=== PATIENT | female | born 1985 | race Caucasian/White ===

== ENCOUNTER 2020-09-26 13:53 | Day surgery (SDC) | payer OTHER ==
[~2020-09-26] VITALS: Ht 170 cm; Wt 181.6 kg
[2020-09-26] VITALS (8 sets, daily range): BP systolic 116–147; BP diastolic 51–93
[2020-09-26] MEDS ORDERED: morphine INJ 10 MG/ML 1ML (SYR OR VIAL) IVP STA ×4 (14:19→16:08)
[2020-09-26 14:20] LABS: HEMATOCRIT 41 % (35-52); HEMOGLOBIN 12.2 g/dL (11.5-16.0); MEAN CORPUSCULAR HEMOGLOBIN 26 pg (25-34); MEAN CORPUSCULAR HGB CONC 30 g/dL (32-36); MEAN CORPUSCULAR VOLUME 86 fL (80-99); MEAN PLATELET VOLUME 10.3 fL (9.0-12.2); PLATELET COUNT 288 10^3/uL (130-400); WHITE BLOOD COUNT 13.4 10^3/uL (4.3-11.0)
[2020-09-26] MEDS ORDERED: morphine INJ 10 MG/ML 1ML (SYR OR VIAL) ONE (14:22)
[2020-09-26 14:28] LABS: ALBUMIN 3.6 GM/DL (3.2-4.5); CHLORIDE 106 MMOL/L (98-107); SODIUM 139 MMOL/L (135-145)
[2020-09-26] MEDS ORDERED: TETANUS,DIPTH,PERTUSS P/F (BOOSTRIX) 0.5 ML VIAL IM ONE (14:30)
[2020-09-26] MEDS ORDERED: TRANEXAMIC ACID INJECTION 1,000 MG in NS (IVPB) 250 ML IV SCH (14:30)
[2020-09-26 14:31] LABS: GLUCOSE 116 MG/DL (70-105); TOTAL PROTEIN 7.4 GM/DL (6.4-8.2)
[2020-09-26 14:32] LABS: BILIRUBIN,TOTAL 0.5 MG/DL (0.1-1.0); CARBON DIOXIDE 24 MMOL/L (21-32)
[2020-09-26 14:33] LABS: FIBRIN DEGRADATION PRODUCTS 2.95 UG/ML (0.00-0.49); INR 1.1 (0.8-1.4); PROTHROMBIN TIME PATIENT 14.1 SEC (12.2-14.7)
[2020-09-26 14:34] LABS: ALKALINE PHOSPHATASE 83 U/L (40-136); CREATININE SERUM 0.84 MG/DL (0.60-1.30); GFR ESTIMATED > 60
[2020-09-26 14:35] LABS: BUN/CREATININE RATIO 15
[2020-09-26 14:36] LABS: BILIRUBIN,DIRECT 0.3 MG/DL (0.0-0.3); BILIRUBIN,INDIRECT 0.2 MG/DL
[2020-09-26 14:37] LABS: ALANINE AMINOTRANSFERASE 59 U/L (0-55); MAGNESIUM 1.9 MG/DL (1.6-2.4)
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
[2020-09-26] MEDS ORDERED: LIDOCAINE PF 2% 5 ML (XYLOCAINE) VIAL ONE (15:25)
[2020-09-26] MEDS ORDERED: fentaNYL INJ 100 MCG/2 ML AMP ONE (15:25)
[2020-09-26] MEDS ORDERED: proPOfol 200 MG/20 ML (DIPRIVAN) VIAL IV ONE (15:25)
[2020-09-26] MEDS ORDERED: MIDAZOLAM 2 MG/2 ML (VERSED) VIAL ONE (15:25)
[2020-09-26 15:42] LABS: AMPHETAMINE SCREEN, URINE NEGATIVE (NEGATIVE); BARBITURATE SCREEN URINE NEGATIVE (NEGATIVE); BENZODIAZEPINES SCREEN URINE NEGATIVE (NEGATIVE); CANNABINOID SCREEN, URINE NEGATIVE (NEGATIVE); COCAINE SCREEN URINE NEGATIVE (NEGATIVE); METHADONE STAT NEGATIVE (NEGATIVE); METHAMPHETAMINE SCREEN URINE S NEGATIVE (NEGATIVE); OPIATE SCREEN URINE POSITIVE (NEGATIVE); OXYCODONE STAT NEGATIVE (NEGATIVE); PROPOXYPHENE STAT NEGATIVE (NEGATIVE); TRICYCLIC ANTIDEPRESSANTS SCRE NEGATIVE (NEGATIVE)
[2020-09-26] MEDS ORDERED: LACTATED RINGERS 1,000 ML IV PRN (15:45)
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
[2020-09-26] MEDS ORDERED: NS 100 ML (IVPB) BAG IV ONE (16:15)
[2020-09-26] MEDS ORDERED: HOLD METFORMIN - RECEIVED CONTRAST 20 ML VIAL IV SCH (16:15)
[2020-09-26] MEDS ORDERED: IOHEXOL 350 MG/ML 100 ML (OMNIPAQUE 350) VIAL IV ONE (16:15)
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
--- NOTE | 2020-09-26 16:55 | Diagnostic Imaging Report ---
PROCEDURE: CT thoracic and lumbar spine without contrast. TECHNIQUE: Multiple contiguous axial images were obtained through the thoracic and lumbar spine without the use of intravenous contrast. Sagittal and coronal reformations were then performed. All CT scans use one or more of the following dose optimizing techniques: automated exposure control, MA and/or KvP adjustment based on patient size and exam type or iterative reconstruction. INDICATION: Back pain. COMPARISON: CT chest, abdomen and pelvis performed concurrently. FINDINGS: Thoracic spine: No acute fracture within the lumbar spine. There has been acute nondisplaced fracture of the left 12th rib at its medial aspect. Alignment of the thoracic spine is normal. No spinal stenosis. Visualized portions of the lungs are clear outside of some atelectasis. Lumbar spine: There are acute simple fractures involving the left first and second transverse processes. No other acute fracture within the lumbar spine. No high-grade spinal stenosis. Mild degenerative disc bulging at L4-L5. No sacral fracture. No concerning abnormality in the retroperitoneum. IMPRESSION: 1. Acute mildly displaced fractures of the left posterior 12th rib and left L1 and L2 transverse processes. 2. No fracture of the thoracic or lumbar vertebrae. Dictated by: Dictated on workstation # [id number]
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
[2020-09-26] MEDS ORDERED: ceFAZolin INJECTION 2,000 MG ONE (18:03)
[2020-09-26] MEDS ORDERED: SEVOFLURANE (ULTANE) 15 ML INHAL SOLN ONE (18:32)
[2020-09-26] MEDS ORDERED: DESFLURANE (SUPRANE) 15 ML INHAL SOLN ONE (18:32)
--- NOTE | 2020-09-26 18:34 | Progress Note-Post Operative ---
Post-Operative Progess Note Surgeon (s)/Watch Commander (s) Surgeon ARA ESPINAL DO Watch Commander: SEBASTIAN Henao Pre-Operative Diagnosis Left leg laceration Post-Operative Diagnosis same plus avulsion of bone Procedure & Operative Findings Date of Procedure 09/26/20 Procedure Performed/Findings Washout and closure of left leg laceration, measuring 21 cm long with 23 sutures Anesthesia Type GET Estimated Blood Loss Estimated blood loss (mL): less than 40 ml Specimens/Packing Specimens Removed loose bony fragment ARA ESPINAL DO Sep 26, 2020 18:34
[2020-09-26] MEDS ORDERED: ONDANSETRON 4 MG/2 ML (SDV) Z0FRAN ONE (18:39)
[2020-09-26] MEDS ORDERED: SUCCINYLCHOLINE INJ 100 MG/5 ML SYR/VIAL ONE (18:40)
[2020-09-26] MEDS ORDERED: ROCURONIUM 10 MG/ML 5 ML SYRINGE IV ONE (18:40)
[2020-09-26] MEDS: LACTATED RINGERS 1,000 ML IV SCH (18:41)
[2020-09-26] MEDS ORDERED: morphine INJ 10 MG/ML 1ML (SYR OR VIAL) IVP PRN (18:45)
[2020-09-26] MEDS ORDERED: ONDANSETRON 4 MG/2 ML (SDV) Z0FRAN IVP PRN (18:45)
--- NOTE | 2020-09-26 19:41 | Diagnostic Imaging Report ---
CLINICAL HISTORY: Postreduction. COMPARISON: Right wrist radiograph performed earlier the same day. TECHNIQUE: 2 views of the right wrist. FINDINGS: There is improved alignment of the fracture involving the distal right radius. Splint has been placed overlying the right wrist. IMPRESSION: Improved alignment of the fracture involving the distal right radius status post reduction. Dictated by: Dictated on workstation # [id number]
--- NOTE | 2020-09-26 19:42 | Anesthesia-General Post-Op ---
General Patient Condition Mental Status/LOC: Same as Preop Cardiovascular: Satisfactory Nausea/Vomiting: Absent Respiratory: Satisfactory Pain: Controlled Complications: Absent Post Op Complications Complications None Follow Up Care/Instructions Patient Instructions None needed. Anesthesia/Patient Condition Patient Condition Patient is doing well, no complaints, stable vital signs, no apparent adverse anesthesia problems. No complications reported per nursing. CHRISTIANO BUTLER CRNA Sep 26, 2020 19:42
[2020-09-26] MEDS ORDERED: ENOXAPARIN 40 MG/0.4 ML (LOVENOX) SYR SC SCH (20:30)
[2020-09-26] MEDS: morphine INJ 4 MG/ML 1 ML (VIAL/SYRINGE) IV PRN (22:02)
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
[2020-09-26] MEDS ORDERED: ALBU2.5V4 (23:13)
[2020-09-26] MEDS ORDERED: MONT10TA32 (23:13)
[2020-09-26] MEDS ORDERED: RT-ALBUINH (23:13)
[2020-09-27] MEDS: morphine INJ 4 MG/ML 1 ML (VIAL/SYRINGE) IV PRN ×7 (00:35→15:28)
[2020-09-27] MEDS: ceFAZolin 2 GM IV Premixed 50 ML IV SCH ×2 (00:46→07:45)
[2020-09-27] MEDS: LACTATED RINGERS 1,000 ML IV SCH ×2 (03:00→11:15)
[2020-09-27 03:54] VITALS: BP 117/73
[2020-09-27 08:31] VITALS: BP 130/60
[2020-09-27] MEDS ORDERED: PANTOPRAZOLE 40 MG (PROTONIX) VIAL IVP SCH (09:00)
[2020-09-27] MEDS ORDERED: IOHEXOL 350 MG/ML 100 ML (OMNIPAQUE 350) VIAL IV ONE (09:30)
[2020-09-27] MEDS ORDERED: NS 100 ML (IVPB) BAG IV ONE (09:30)
[2020-09-27] MEDS ORDERED: HOLD METFORMIN - RECEIVED CONTRAST 20 ML VIAL IV SCH (09:30)
--- NOTE | 2020-09-27 10:39 | Progress Note - Surgery ---
Subjective Time Seen by a Provider: 10:24 Subjective/Events-last exam Pt seen and examined, she just got back from CT. She is sitting up in chair and nurse states she transferred herself. Pt states leg and wrist hurt, but not that bad and she wants to go home today. Review of Systems General: No Chills, No Night Sweats Pulmonary: No Dyspnea, No Cough Cardiovascular: No: Chest Pain, Palpitations Gastrointestinal: No: Nausea, Vomiting, Abdominal Pain Musculoskeletal: arm pain, leg pain Focused Exam Lactate Level 09/26/20 14:16: Lactic Acid Level 1.07 Objective Exam Vital Signs Date Time Temp Pulse Resp B/P (MAP) Pulse Ox O2 Delivery O2 Flow Rate FiO2 09/27/20 08:31 36.2 84 19 130/60 (83) 96 Room Air 09/27/20 08:10 Room Air 09/27/20 03:54 35.6 84 20 117/73 (88) 91 Room Air 09/26/20 23:54 35.9 84 20 116/75 (89) 92 Room Air 09/26/20 20:00 Room Air 09/26/20 19:55 36.6 97 20 133/66 (88) 94 Room Air 09/26/20 19:42 Room Air 09/26/20 19:30 Room Air 09/26/20 19:30 36.4 14 143/93 (110) 93 Room Air 09/26/20 19:20 14 134/63 (86) 100 Nasal Cannula 2 09/26/20 19:10 14 123/51 (75) 100 Nasal Cannula 2 09/26/20 19:10 Nasal Cannula 2 09/26/20 19:00 14 128/73 (91) 100 Nasal Cannula 2 09/26/20 18:55 Nasal Cannula 2 09/26/20 18:51 18 120/56 (77) 100 Nasal Cannula 2 09/26/20 18:41 37 22 147/53 (84) 100 OxyMask 6 09/26/20 18:41 OxyMask 6 09/26/20 17:30 36.7 108 20 108/63 98 Nasal Cannula 2.00 09/26/20 14:30 37.2 97 22 127/78 (94) 97 I & O 09/27/20 07:00 Intake Total 1830 ml Output Total 1325 ml Balance 505 ml Capillary Refill : Less Than 3 Seconds General Appearance: No Apparent Distress, Obese (super morbidly) Respiratory: Chest Non Tender, Lungs Clear, Normal Breath Sounds, No Accessory Muscle Use, No Respiratory Distress Cardiovascular: Regular Rate, Rhythm Peripheral Pulses: 2+ Dorsalis Pedis (R), 2+ Left Dors-Pedis (L) Gastrointestinal: normal bowel sounds, soft Extremity: Other (right wrist in splint, left leg wrapped with bandage) Neurologic/Psychiatric: Alert, Oriented x3 Results Lab Laboratory Tests 09/26/20 14:16: White Blood Count 13.4H, Red Blood Count 4.73, Hemoglobin 12.2, Hematocrit 41, Mean Corpuscular Volume 86, Mean Corpuscular Hemoglobin 26, Mean Corpuscular Hemoglobin Concent 30L, Red Cell Distribution Width 16.1H, Platelet Count 288, Mean Platelet Volume 10.3, Prothrombin Time 14.1, INR Comment 1.1, Activated Partial Thromboplast Time 24, Fibrinogen 567H, D-Dimer 2.95H, Sodium Level 139, Potassium Level 4.0, Chloride Level 106, Carbon Dioxide Level 24, Anion Gap 9, Blood Urea Nitrogen 13, Creatinine 0.84, Estimat Glomerular Filtration Rate > 60, BUN/Creatinine Ratio 15, Glucose Level 116H, Lactic Acid Level 1.07, Calcium Level 9.0, Phosphorus Level 3.0, Magnesium Level 1.9, Total Bilirubin 0.5, Direct Bilirubin 0.3, Indirect Bilirubin 0.2, Aspartate Amino Transf (AST/SGOT) 84H, Alanine Aminotransferase (ALT/SGPT) 59H, Alkaline Phosphatase 83, Total Protein 7.4, Albumin 3.6, Serum Test, Qualitative NEGATIVE, Serum Alcohol < 10 09/26/20 15:14: Urine Opiates Screen POSITIVEH, Urine Oxycodone Screen NEGATIVE, Urine Methadone Screen NEGATIVE, Urine Propoxyphene Screen NEGATIVE, Urine Barbiturates Screen NEGATIVE, Ur Tricyclic Antidepressants Screen NEGATIVE, Urine Phencyclidine Screen NEGATIVE, Urine Amphetamines Screen NEGATIVE, Urine Methamphetamines Screen NEGATIVE, Urine Benzodiazepines Screen NEGATIVE, Urine Cocaine Screen NEGATIVE, Urine Cannabinoids Screen NEGATIVE Assessment/Plan Assessment/Plan Assessment/Plan Left leg Laceration Left 12 rib fx L1 transverse process fx Right wrist fracture PT went to OR for washout of left leg laceration and closure and ER physician splinted her right wrist while she was in OR. Post reduction films look good. I ordered CT of her leg today because I found a loose bony fragment. I went over CT films myself and believe that it came of medial aspect of femur. There does not appear to be a lot of bleeding in the area, but I am concerned that the patella may have been torn out of place. I will wait for radiology reading and then call Ortho for some advice. If ortho says she is ok will send her home and have her f/u with myself and ortho as an outpt. ARA ESPINAL DO Sep 27, 2020 10:39
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
[2020-09-27 12:38] VITALS: BP 155/68
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
--- NOTE | 2020-09-27 15:13 | Discharge Inst-Surgical ---
Discharge Inst-Surgical Depart Medication/Instructions New, Converted or Re-Newed RX: Transmitted to Pharmacy Patient Instructions Follow up Appt: Make appointment for Tuesday or . [phone] Instructions: No lifting greater than 20 pounds. No strenuous activity. May shower in 24 hours, no tub bath or soaking. Use incentive spirometer at home as directed. No Smoking Skin/Wound Care: May remove bandages in am. You need to leave the sutures in place and come in to have them removed. You must wear the sling on right arm until you follow up with Orthopedic surgery, you must wear the left knee immobilizer until you see Ortho. Symptoms to Report: Appetite Changes, Extremity Discoloration, Numbness/Tingling, Swelling Increased, Bleeding Excessive, Eyesight Changes, Pain Increased, Urine Color Change, Constipation(Persistent), Fever over 101 degree F, Pain/Pressure in chest, Urinating Difficulty, Cough Up/Vomit Blood, Heart Beat Irreg/Pounding, Pain/Pressure in jaw, Cramps in feet or legs, Lightheadedness, Pain/Pressure in shoulder, Diarrhea(Persistent), Memory Changes Suddenly, Questions/Concerns, Weight gain consecutive days, Dizziness/Fainting, Nausea/Vomiting, Shortness of Breath, Weight gain over 2 pounds If questions or concerns contact your physician Or seek help at emergency department. Activity Walking Assistive Device: Crutches (if needed, can weight bear on leg) Activity Instructions: Avoid Pulling & Pushing Driving Instructions: No Driving/Refer to Dr. Oleary Discharge Diet: No Restrictions If Any Problems/Questions/Issu: Contact Your Physician, Go to Emergency Room Skin/Wound Care Infection Signs and Symptoms: Increased Redness, Foul Odor of Wound, Increased Drainage, Skin Itchy or Has a Rash, Increased Swelling, Temperature Above 101 F Bathing Instructions: Shower Stitches/Camille/Dermabond Dis: Care of ARA Lundy DO Sep 27, 2020 15:13
[2020-09-27] MEDS ORDERED: ACHYD1T PO (15:15)
== END 2020-09-27 16:00 | disposition home or self-care (01) ==
LOC: ER 13:58 → SDC 17:26 → 4TH 18:52 → SDC 09-27 16:00
PROVIDERS: ATTEND Surgery
DX: S81.812A Laceration without foreign body, left lower leg, initial encounter (principal); S82.92XA Unspecified fracture of left lower leg, initial encounter for closed fracture; M85.862 Other specified disorders of bone density and structure, left lower leg; S81.012A Laceration without foreign body, left knee, initial encounter; S20.219A Contusion of unspecified front wall of thorax, initial encounter; S30.1XXA Contusion of abdominal wall, initial encounter; S52.501A Unspecified fracture of the lower end of right radius, initial encounter for closed fracture; S32.019A Unspecified fracture of first lumbar vertebra, initial encounter for closed fracture; S22.32XA Fracture of one rib, left side, initial encounter for closed fracture; S32.009A Unspecified fracture of unspecified lumbar vertebra, initial encounter for closed fracture; E66.01 Morbid (severe) obesity due to excess calories; V89.2XXA Person injured in unspecified motor-vehicle accident, traffic, initial encounter; M54.9 Dorsalgia, unspecified; Z68.44 Body mass index [BMI] 60.0-69.9, adult; F17.290 Nicotine dependence, other tobacco product, uncomplicated; J45.909 Unspecified asthma, uncomplicated; Z83.3 Family history of diabetes mellitus; Z82.49 Family history of ischemic heart disease and other diseases of the circulatory system
CPT/HCPCS: 13121; 13122 ×3; 51702; 70450; 71045; 71260; 72125; 72128; 72131; 73100; 73110; 73590; 73620; 73701; 74177; 80048; 80076; 80306; 83605; 83735; 84100; 84703; 85027; 85379; 85384; 85610; 85730; 86850; 86900; 86901; 86920; 99285; G0480; 36415; 80320; 90715